=== PATIENT | male | born 1990 | race Caucasian/White ===

== ENCOUNTER 2016-08-29 21:44 | Emergency (ER) | payer OTHER ==
[2016-08-29 21:52] VITALS: BP 135/70
[2016-08-29] MEDS ORDERED: LIDOCAINE 1% INJ-PF (10 MG/ML) 30 ML SDV INJ ONE (22:26)
--- NOTE | 2016-08-29 22:31 | ER Document Report ---
ED Skin Rash/Insect Bite/Abscs - General Chief Complaint: Rectal Abscess Stated Complaint: POSSIBLE ABSCESS Time Seen by Provider: 08/29/16 22:17 Notes: Patient is a 26-year-old male who comes emergency department for chief complaint of 3 days of worsening pain in his left upper buttock area and lower back. He states that it is difficult to sit down. He has no trouble with bowel movements. He denies fever or chills. He is not a diabetic. He denies history of the same. TRAVEL OUTSIDE OF THE [place] IN LAST 30 DAYS: No - Related Data Allergies/Adverse Reactions: No Known Allergies Allergy (Unverified 01/12/16 14:02) Past Medical History - General Information source: Patient - Social History Smoking Status: Current Every Day Smoker Frequency of alcohol use: None Drug Abuse: None Lives with: Friend Family History: None Patient has suicidal ideation: No Patient has homicidal ideation: No Pulmonary Medical History: Reports: Hx Pneumonia Renal/ Medical History: Denies: Hx Peritoneal Dialysis Surgical Hx: Negative - Immunizations Hx Diphtheria, Pertussis, Tetanus Vaccination: Yes Review of Systems - Review of Systems Constitutional: No symptoms reported EENT: No symptoms reported Cardiovascular: No symptoms reported Respiratory: No symptoms reported Gastrointestinal: No symptoms reported Genitourinary: No symptoms reported Male Genitourinary: No symptoms reported Musculoskeletal: No symptoms reported Skin: See HPI Hematologic/Lymphatic: No symptoms reported Neurological/Psychological: No symptoms reported Physical Exam - Vital signs Vitals: Temp Pulse Resp BP Pulse Ox 99.1 F 93 18 135/70 H 98 08/29/16 21:49 08/29/16 21:49 08/29/16 21:49 08/29/16 21:49 08/29/16 21:49 Interpretation: Normal - General General appearance: Appears well, Alert In distress: None - Patient has difficulty sitting comfortably but otherwise he does not appear to be in distress - HEENT Head: Normocephalic, Atraumatic Eyes: Normal Conjunctiva: Normal Extraocular movements intact: Yes Eyelashes: Normal Pupils: PERRL Sinus: Normal Nasal: Normal Mouth/Lips: Normal Mucous membranes: Normal Pharynx: Normal Neck: Normal - Respiratory Respiratory status: No respiratory distress Chest status: Nontender Breath sounds: Normal. No: Decreased air movement, Wheezing Chest palpation: Normal - Cardiovascular Rhythm: Regular. No: Tachycardia Heart sounds: Normal auscultation, S1 appreciated, S2 appreciated Murmur: No - Abdominal Inspection: Normal Distension: No distension Bowel sounds: Normal Tenderness: Nontender Organomegaly: No organomegaly - Back Back: Normal, Nontender. 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 Course - Re-evaluation Re-evalutation: 08/29/16 22:31 [facility], however patient specifically tells me this is not true, this is the first time. Patient with pilonidal cyst abscess, this was cleaned, drained, packed, patient placed on antibiotics, patient given pain medication. Discussed care, follow-up , return precautions, patient also given surgical referral in case he needs it. This was discussed in detail. Patient states understanding and agreement. - Vital Signs Vital signs: Temp Pulse Resp BP Pulse Ox 99.1 F 93 18 135/70 H 98 08/29/16 21:49 08/29/16 21:49 08/29/16 21:49 08/29/16 21:49 08/29/16 21:49 Procedures - Incision and Drainage left sided pilonidal cyst abscess Type: Single Anesthetic type: 1% Lidocaine mL's of anesthetic: 8 I&D procedure: Shurclens applied - surgical cleanser, Sterile dressing applied Incision Method: Incision made by scalpel Notes: About 20 ccs of purulent material expressed; explored, cleaned, packed. Discharge - Discharge Clinical Impression: Pilonidal cyst with abscess Condition: Stable Disposition: HOME, SELF-CARE Additional Instructions: You have been evaluated and treated today for a pilonidal cyst abscess. Packing needs to come out/be exchanged in hours. Keep clean, keep absorbing dressing over the site, take the antibiotic prescribed. The pain medication if needed. I recommend followup with the surgical referral if this continues to happen. Return to emergency department immediately for any concerning or worsening symptoms including severe pain or swelling, spreading redness, fever, etc. Prescriptions: Morphine Sulfate [Morphine Ir 15 Mg Tablet] 15 mg PO Q4HP PRN #12 tablet PRN Reason: Sulfamethoxazole/Trimethoprim [Bactrim Ds Tablet] 1 each PO BID #10 tablet Forms: Return to Work Referrals: [facility] [Provider Group] - Follow up as needed
[2016-08-29] MEDS ORDERED: MORPHINE SULFATE 10 MG/ML INJ IM ONE (23:01)
[2016-08-29] MEDS ORDERED: ONDANSETRON 4 MG TAB.RAPDIS PO ONE (23:01)
== END 2016-08-30 00:40 | disposition home or self-care (01) ==
LOC: ER 21:44
PROC: 0H98XZZ Drainage of Buttock Skin, External Approach (ICD-10-PCS; principal; 2016-08-29)
DX: K61.1 Rectal abscess (principal); F17.200 Nicotine dependence, unspecified, uncomplicated
CPT/HCPCS: 99283; 96372; 10080; S0119; J2270; A6266

== ENCOUNTER 2016-08-31 18:05 | Emergency (ER) | payer OTHER ==
[2016-08-31 18:21] VITALS: BP 140/49
--- NOTE | 2016-08-31 19:24 | ER Document Report ---
HPI - HPI Patient complains to provider of: Abscess I and D wound check Onset: Other - Tuesday Onset/Duration: Better Pain Level: 3 Context: 26-year-old male had a pilonidal cyst abscess I&D done Tuesday. He is here for a wound recheck. Feels a lot better and he has been going to work. He came today to get the packing removed. No fever. Associated Symptoms: None Exacerbated by: Denies Relieved by: Denies Similar symptoms previously: No Recently seen / treated by doctor: No - ROS ROS below otherwise negative: Yes Systems Reviewed and Negative: Yes All other systems reviewed and negative - REPRODUCTIVE Reproductive: DENIES: : - DERM Skin Color: Normal Past Medical History - General Information source: Patient - Social History Smoking Status: Current Every Day Smoker Frequency of alcohol use: None Drug Abuse: None Lives with: Spouse/Significant other Family History: None Patient has suicidal ideation: No Patient has homicidal ideation: No Pulmonary Medical History: Reports: Hx Pneumonia Renal/ Medical History: Denies: Hx Peritoneal Dialysis Past Surgical History: Reports: Hx Oral Surgery - wisdom teeth - Immunizations Hx Diphtheria, Pertussis, Tetanus Vaccination: Yes Vertical Provider Document - CONSTITUTIONAL Agree With Documented VS: Yes Exam Limitations: No Limitations General Appearance: No Apparent Distress - INFECTION CONTROL TRAVEL OUTSIDE OF THE [place] IN LAST 30 DAYS: No - HEENT HEENT: Normocephalic - NECK Neck: Supple - RESPIRATORY O2 Sat by Pulse Oximetry: 97 - NEURO Level of Consciousness: Awake, Alert, Appropriate - DERM Integumentary: Abscess - Packing removed from the left pilonidal abscess incision and drainage there is minimal erythema and pus. Course - Vital Signs Vital signs: Temp Pulse Resp BP Pulse Ox 99.1 F 75 17 140/49 H 97 08/31/16 18:20 08/31/16 18:20 08/31/16 18:20 08/31/16 18:20 08/31/16 18:20 Discharge - Discharge Clinical Impression: Abscess I and D recheck Condition: Good Disposition: HOME, SELF-CARE Instructions: Abscess ([facility]) Additional Instructions: Shower daily using antibacterial soap and vigorous washing with a washcloth in the shower pressure over the wound Finish antibiotics Dry dressing return to the emergency room any concerns Please complete the patient satisfaction survey if you get one, and return it.. If you do not receive a survey, then you can go to the [facility] website, [email or web address] and place your comments about your very good care. Thank you very much. It was a pleasure being your medical provider today.
== END 2016-08-31 20:02 | disposition home or self-care (01) ==
LOC: ER 18:05
DX: Z48.01 Encounter for change or removal of surgical wound dressing (principal); F17.200 Nicotine dependence, unspecified, uncomplicated
CPT/HCPCS: 99282

== ENCOUNTER 2016-09-12 07:06 | Emergency (ER) | payer OTHER ==
[2016-09-12 07:16] VITALS: BP 140/61
[2016-09-12] MEDS ORDERED: CIPROFLOXACIN HCL/DEXAMETH OTIC DROP 7.5 ML AD ONE (07:25)
[2016-09-12] MEDS ORDERED: HYDROCODONE/ACETAMINOPHEN 5-325 MG 6 TAB/DSPK PO PRN (07:25)
--- NOTE | 2016-09-12 07:34 | ER Document Report ---
HPI - HPI Patient complains to provider of: r ear pain Onset: Other - 3 days Onset/Duration: Persistent Quality of pain: Sharp Pain Level: 4 Context: Patient presents complaining of right ear pain with swelling and drainage from his right ear. Symptoms have been going on for the past 3 days. Patient denies any fever. Associated Symptoms: Earache. denies: Fever Exacerbated by: Denies Relieved by: Denies Similar symptoms previously: No Recently seen / treated by doctor: No - ROS ROS below otherwise negative: Yes Systems Reviewed and Negative: Yes All other systems reviewed and negative - CONSTITUTIONAL Constitutional: DENIES: Fever - EENT EENT: REPORTS: Ear Pain - GASTROINTESTINAL Gastrointestinal: DENIES: Nausea, Patient vomiting - REPRODUCTIVE Reproductive: DENIES: : - MUSCULOSKELETAL Musculoskeletal: DENIES: Neck Pain - DERM Skin Color: Normal Skin Problems: None Past Medical History - General Information source: Patient - Social History Smoking Status: Current Every Day Smoker Frequency of alcohol use: None Drug Abuse: None 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 IN LAST 30 DAYS: No - HEENT HEENT: Atraumatic, Normocephalic. negative: Pharyngeal Exudate, Pharyngeal Tenderness, Pharyngeal Erythema Notes: Patient with tenderness with movement of right helix, right preauricular lymphadenopathy. Right external auditory canal swollen with exudate. Patient without any mastoid tenderness or swelling. - NECK Neck: Lymphadenopathy-Right - preauricular - RESPIRATORY Respiratory: Breath Sounds Normal, No Respiratory Distress O2 Sat by Pulse Oximetry: 95 - CARDIOVASCULAR Cardiovascular: Regular Rate, Regular Rhythm - MUSCULOSKELETAL/EXTREMETIES Musculoskeletal/Extremeties: MAEW - NEURO Level of Consciousness: Awake, Alert, Appropriate Motor/Sensory: No Motor Deficit - DERM Integumentary: Warm, Dry, No Rash Course - Re-evaluation Re-evalutation: 09/12/16 07:33 The patient has been informed that they may have pre-hypertension or hypertension based on a blood pressure reading in the emergency department. I recommend that patient call the primary care provider listed on their discharge instructions or a physician of their choice by this week to arrange follow-up for further evaluation of possible pre-hypertension or hypertension. 09/12/16 08:06 modified ear wick made from plain packing gauze placed in R EAC. Drops administered. Pt advised to remove packing if it does not fall out at the end of the 7 day. - Vital Signs Vital signs: Temp Pulse Resp BP Pulse Ox 98.8 F 94 18 140/61 H 95 09/12/16 07:12 09/12/16 07:12 09/12/16 07:12 09/12/16 07:12 09/12/16 07:12 Discharge - Discharge Clinical Impression: Elevated blood pressure reading Otitis externa Qualifiers: Otitis externa type: unspecified type Chronicity: acute Laterality: right Qualified Code(s): H60.501 - Unspecified acute noninfective otitis externa, right ear Disposition: HOME, SELF-CARE Instructions: Use of Ear Drops ([facility]), Otitis Externa ([facility]), Oral Narcotic Medication ([facility]) Additional Instructions: Return immediately for any new or worsening symptoms Followup with your primary care provider, call tomorrow to make a followup appointment Ciprodex, instill 4 drops to right ear twice a day for 7 days. Prescriptions: Hydrocodone/Acetaminophen [[place] 5-325 Tablet] 1 each PO Q4 PRN #10 tablet PRN Reason: Forms: Elevated Blood Pressure Referrals: [facility] [Provider Group] - Follow up as needed
== END 2016-09-12 08:12 | disposition home or self-care (01) ==
LOC: ER 07:06
DX: H60.501 Unspecified acute noninfective otitis externa, right ear (principal); H92.01 Otalgia, right ear; R03.0 Elevated blood-pressure reading, without diagnosis of hypertension; F17.200 Nicotine dependence, unspecified, uncomplicated
CPT/HCPCS: 99282; J3490

== ENCOUNTER 2018-04-18 17:20 | Emergency (ER) | payer OTHER ==
[2018-04-18] MEDS ORDERED: HALOPERIDOL LACTATE INJ 5 MG/1 ML VIAL IM ONE (20:05)
[2018-04-18] MEDS ORDERED: LORAZEPAM INJ 2 MG/1 ML VIAL IM ONE (20:05)
[2018-04-18] MEDS ORDERED: DIPHENHYDRAMINE HCL 50 MG/ML VIAL IM ONE (20:05)
[2018-04-18] MEDS: LORAZEPAM INJ 2 MG/1 ML VIAL ONE ×2 (20:05→20:20)
[2018-04-18] MEDS: DIPHENHYDRAMINE HCL 50 MG/ML VIAL ONE ×2 (20:05→20:20)
[2018-04-18] MEDS: HALOPERIDOL LACTATE INJ 5 MG/1 ML VIAL ONE ×2 (20:06→20:20)
[2018-04-18 20:29] LABS: ABSOLUTE BASOPHILS # (AUTO) 0.1 10^3/uL (0.0-0.2); ABSOLUTE EOSINOPHILS # (AUTO) 0.1 10^3/uL (0.0-0.6); ABSOLUTE LYMPHOCYTES (AUTO) 3.1 10^3/uL (0.5-4.7); ABSOLUTE MONOCYTES (AUTO) 0.8 10^3/uL (0.1-1.4); ABSOLUTE NEUT (AUTO) 9.9 10^3/uL (1.7-8.2); BASOPHILS % (AUTO) 0.5 % (0-2); EOSINOPHILS % (AUTO) 0.6 % (0-6); HEMATOCRIT 50.1 % (37.9-51.0); HEMOGLOBIN 17.6 g/dL (13.5-17.0); LYMPHOCYTES % (AUTO) 22.4 % (13-45); MEAN CORPUSCULAR HEMOGLOBIN 31.1 pg (27.0-33.4); MEAN CORPUSCULAR HGB CONC 35.1 g/dL (32.0-36.0); MEAN CORPUSCULAR VOLUME 88 fl (80-97); MONOCYTES % (AUTO) 5.6 % (3-13); PLATELET COUNT 318 10^3/uL (150-450); RED BLOOD COUNT 5.67 10^6/uL (4.35-5.55); RED CELL DISTRIBUTION WIDTH 13.3 % (11.5-14.0); SEGMENTED NEUTROPHILS % (AUTO) 70.9 % (42-78); TOTAL CELLS COUNTED % (AUTO) 100 %
[2018-04-18 20:49] LABS: ALANINE AMINOTRANSFERASE 36 U/L (21-72); ALBUMIN 5.5 g/dL (3.5-5.0); ALKALINE PHOSPHATASE 94 U/L (38-126); ANION GAP 17 (5-19); ASPARTATE AMINO TRANSFERASE 29 U/L (17-59); BILIRUBIN,DIRECT 0.3 mg/dL (0.0-0.4); BILIRUBIN,TOTAL 0.8 mg/dL (0.2-1.3); BLOOD UREA NITROGEN 12 mg/dL (7-20); CALCIUM 10.8 mg/dL (8.4-10.2); CARBON DIOXIDE 20 mmol/L (22-30); CHLORIDE 105 mmol/L (98-107); GLUCOSE 102 mg/dL (75-110); POTASSIUM 4.2 mmol/L (3.6-5.0); SODIUM 142.1 mmol/L (137-145); TOTAL PROTEIN 8.5 g/dL (6.3-8.2)
[2018-04-18 20:54] LABS: ACETAMINOPHEN < 10 ug/mL (10-30); ALCOHOL < 10 mg/dL (NONE DETECTED); SALICYLATE < 1.0 mg/dL (2.0-20.0)
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
[2018-04-19 06:05] LABS: ABSOLUTE BASOPHILS # (AUTO) 0.1 10^3/uL (0.0-0.2); ABSOLUTE EOSINOPHILS # (AUTO) 0.1 10^3/uL (0.0-0.6); ABSOLUTE LYMPHOCYTES (AUTO) 2.3 10^3/uL (0.5-4.7); ABSOLUTE MONOCYTES (AUTO) 0.8 10^3/uL (0.1-1.4); BASOPHILS % (AUTO) 0.6 % (0-2); EOSINOPHILS % (AUTO) 1.6 % (0-6); HEMATOCRIT 46.3 % (37.9-51.0); HEMOGLOBIN 16.1 g/dL (13.5-17.0); LYMPHOCYTES % (AUTO) 24.7 % (13-45); MEAN CORPUSCULAR HEMOGLOBIN 30.7 pg (27.0-33.4); MEAN CORPUSCULAR HGB CONC 34.9 g/dL (32.0-36.0); MEAN CORPUSCULAR VOLUME 88 fl (80-97); MONOCYTES % (AUTO) 8.4 % (3-13); PLATELET COUNT 232 10^3/uL (150-450); RED BLOOD COUNT 5.26 10^6/uL (4.35-5.55); RED CELL DISTRIBUTION WIDTH 13.1 % (11.5-14.0); SEGMENTED NEUTROPHILS % (AUTO) 64.7 % (42-78); TOTAL CELLS COUNTED % (AUTO) 100 %; WHITE BLOOD COUNT 9.3 10^3/uL (4.0-10.5)
[2018-04-19 06:06] VITALS: BP 128/68
[2018-04-19 06:21] LABS: APPEARANCE,URINE SLIGHTLY-CLOUDY; BILIRUBIN,URINE NEGATIVE (NEGATIVE); GLUCOSE, URINE NEGATIVE (NEGATIVE); KETONES,URINE TRACE mg/dL (NEGATIVE); LEUKOCYTE ESTERASE,URINE NEGATIVE (NEGATIVE); NITRITE,URINE NEGATIVE (NEGATIVE); PROTEIN,URINE 30 mg/dL (NEGATIVE); URINE SPECIFIC GRAVITY 1.026; UROBILINOGEN,URINE NEGATIVE mg/dL (<2.0)
[2018-04-19 06:23] LABS: COLOR,URINE YELLOW
[2018-04-19 06:39] LABS: URINE AMPHETAMINES SCREEN NEGATIVE; URINE BARBITURATES SCREEN NEGATIVE; URINE BENZODIAZEPINES SCREEN NEGATIVE; URINE COCAINE SCREEN NEGATIVE; URINE MARIJUANA (THC) SCREEN UNCONFIRMED POSITIVE; URINE METHADONE SCREEN NEGATIVE; URINE PHENCYCLIDINE SCREEN NEGATIVE
[2018-04-19] MEDS ORDERED: NICOTINE 21 MG/24 HR PATCH.TD24 TD ONE (10:51)
--- NOTE | 2018-04-19 10:53 | ER Document Report ---
Doctor's Note Notes: 04/19/18 10:52 Patient seen and examined. Evidently the patient had made suicidal threats last night. He states he is no longer suicidal. He is actually due to start counseling today, is looking forward to that. He does admit to feeling anxious, wants a cigarette. He does have a history of suicide attempt several years ago before he quit drinking. He no longer drinks at all. He feels comfortable, and in fact is very much looking forward to discharge. Patient is mildly anxious in appearance but pleasant, cooperative, makes good eye contact. Heart is regular rate and rhythm, lungs are clear to auscultation bilaterally. Abdomen soft, nontender, normoactive bowel sounds. Plan is for discharge. Patient given a nicotine patch prior to discharge. No medication recommendations as he is currently starting counseling. Patient is amenable to this plan.
--- NOTE | 2018-04-19 19:16 | EKG REPORT ---
SEVERITY:- NORMAL ECG - SINUS RHYTHM : Confirmed by: Myra Nair MD 19-Apr-2018 19:14:43
--- NOTE | 2018-04-20 11:27 | PSYCHOLOGICAL NOTE ---
Psych Note - Psych Note Date seen by psych provider: 04/19/18 Time seen by psych provider: 09:50 Psych Note: Reason for Consult: suicidal ideation Patient is a 28-year-old male with ADHD, manic depression presents to the emergency department accompanied by IFS worker due to suicidal ideation. Clinician conducted phone consult on 04/18/2018 upon initial arrival Patient reports that he was feeling anxious. He states he has had 2 good interviews; however, did not want to be alone. He was unable to explain incongruent emotions of positive feelings between having a good interview to feelings of wanting to harm himself. He continued to report that he is not on medication. 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 He currently is in between jobs and that has created a lot of stress. Patient reports he just wants to go home that he feels the hospital will make him worse. Clinician spoke with mobile muffle worker, Niurka, who reports that they have been working with the patient since early afternoon. Patient reportedly had a couple good interviews and one came home got into an argument with his ex-girlfriend. They currently still live together however when she was told he possibly be getting a job she mentioned that she will be moving out. This resulted in the patient reporting he wanted to kill himself. She reports they put into place a line of action where the patient would not be home alone; however, for some unknown reason the people that were part of the plan left resulted in the patient being home alone again with his ex-girlfriend. At that point the patient was screaming at at his ex-girlfriend and continued to voice suicidal ideation. She reports the patient is diagnosed with bipolar however is not taking medication. She confirms there was weapons in the home however personally witnessed the weapons being removed. She reports the patient witnessed his father being killed when he was young. He has been sober for 5 years. She reports a concern is that they had a plan of care that for unknown reasons dissolved. Patient is unable to stay with his girlfriend because of the discord. Patient was recommended for IVC petition for overnight mental health hold and observation. Patient will be reevaluated in the morning and person. Evaluation in person 04/19/2018 Patient reports he is feeling "better just still a little anxious." He reports that he feels that stemming from being in the hospital itself not from last night's events. Patient apologized for his behavior last evening. Clinician notes patient's behavior escalated after phone consult and being told he had to stay overnight. Patient identifies Victor Hugo Aguirre as a roommate and provided consent for clinician to speak with him. He reports that he has other friends that are willing to assist in monitoring the patient. He disclosed that he does have an interview today at 4 PM and is very concerned about missing this. He continued to report that he has an appointment with [facility]. He states that while he does not want to take medication if this is recommended by the behavioral health team he will take the medications. Clinician spoke with patient's roommate, Victor Hugo. He reports that he was not part of the plan of care last night with the patient. He states that their friend was with him however had to leave for work and they were hoping that the patient be able to stay with his ex-girlfriend until at he himself got off of work; however, it dissolved before he even got off work. He discloses that he is home for the patient today and confirms he will continue working with the patient to ensure he does not have access to medications and will follow with mental health recommendations. He has no concerns with the patient returning home and states that he knows that the patient is very concerned about missing a job interview has this is been a significant stressor. He reports that the patient's ex- girlfriend has moved out of their apartment so there will be no contact between the 2. Clinician spoke with patient to discuss the fact that the girlfriend moved out of the apartment. He reports that he asked her to and is glad that she is followed through with that. He discloses appropriate affect and acknowledging needing to learn positive coping skills. No medication recommendations at this time Unspecified bipolar and related disorder Alcohol abuse per history; 5 years sober Impression\\plan: Patient is recommended for rescind of IVC and is cleared from acute psychiatric services. Patient presentation has greatly improved. He has had time to cool down is able to engage appropriate with clinician. Patient is able to engage in problem solving and solution focused techniques with clinician to identify working with outpatient mental health services in the form of therapy. Patient agrees to engage in services and allow time to work with a therapist to determine if medication is needed. Patient's roommate, Victor Hugo, agrees to be part of patient's plan of care i.e. no access to medications and weapons and follows through with mental health recommendations. All weapons have been removed from the home and the significant stressor of the ex- girlfriend living in the home has moved out during his [facility] visit. Patient has an appointment with [facility] for continued outpatient mental health treatment. Dr. Elliott was consulted and the care management this patient; attending physicians in agreement with recommendations and disposition.
== END 2018-04-19 11:23 | disposition home or self-care (01) ==
LOC: ER 17:20
DX: R45.851 Suicidal ideations (principal); F17.210 Nicotine dependence, cigarettes, uncomplicated; Z88.0 Allergy status to penicillin
CPT/HCPCS: 93005; 99285; 96372; 36415; 80307 ×4; 85025; 80053; 81001; 93010; J1200; J1630; J2060

== ENCOUNTER 2018-05-06 16:08 | Emergency (ER) | payer SELFPAY ==
--- NOTE | 2018-05-06 17:08 | ER Document Report ---
ED Medical Screen (RME) - General Chief Complaint: Cyst Stated Complaint: POSSIBLE ABSCESS Time Seen by Provider: 05/06/18 17:06 Mode of Arrival: Ambulatory Information source: Patient TRAVEL OUTSIDE OF THE [place] IN LAST 30 DAYS: No - HPI Patient complains to provider of: pilonidal cyst Onset: Yesterday - pt with h/o recurrent pilonidal cyst with painful swollen cyst in usual location. - Related Data Allergies/Adverse Reactions: amoxicillin Allergy (Verified 04/18/18 17:54) Past Medical History Pulmonary Medical History: Reports: Hx Pneumonia Renal/ Medical History: Denies: Hx Peritoneal Dialysis Psychiatric Medical History: Reports: Hx Attention Deficit Hyperactivity Disorder, Hx Depression Past Surgical History: Reports: Hx Oral Surgery - wisdom teeth, Hx Tonsillectomy - adenoids - Immunizations Hx Diphtheria, Pertussis, Tetanus Vaccination: Yes Physical Exam - Vital signs Vitals: Temp Pulse Resp BP Pulse Ox 98.4 F 94 16 110/58 L 98 05/06/18 16:24 05/06/18 16:24 05/06/18 16:24 05/06/18 16:24 05/06/18 16:24 Course - Vital Signs Vital signs: Temp Pulse Resp BP Pulse Ox 98.4 F 94 16 110/58 L 98 05/06/18 16:24 05/06/18 16:24 05/06/18 16:24 05/06/18 16:24 05/06/18 16:24
[2018-05-06] MEDS ORDERED: LIDOCAINE 1%/EPINEPHRINE INJ 20 ML VIAL INJ ONE (20:06)
[2018-05-06] MEDS ORDERED: SULFAMETHOXAZOLE/TRIMETHOPRIM 800-160 MG TABLET PO ONE (20:34)
--- NOTE | 2018-05-06 20:38 | ER Document Report ---
ED General - General Chief Complaint: Cyst Stated Complaint: POSSIBLE ABSCESS Time Seen by Provider: 05/06/18 17:06 Mode of Arrival: Ambulatory Notes: Patient is a 27-year-old male with a past oral history of a recurrent pilonidal cyst and requiring repeated drainages for the abscess to the same area who presents with 4 days of progressively worsening pain and swelling to the left gluteal cleft. I saw this patient in November 2017 for the same and he states that it feels identical to that. He does describe having a severe, constant, aching pain to the area. States any application of pressure such as trying to sit down triggers or worsens the pain. He has been trying Tylenol and ibuprofen without any significant improvement in the pain. He denies any fever or constitutional symptoms. He is planning to go to [place] and has an appointment scheduled for surgery for definitive management at that time as he did not follow-up after our last visit. TRAVEL OUTSIDE OF THE [place] IN LAST 30 DAYS: No - Related Data Allergies/Adverse Reactions: amoxicillin Allergy (Verified 04/18/18 17:54) Past Medical History - General Information source: Patient - Social History Smoking Status: Current Every Day Smoker Chew tobacco use (# tins/day): No Frequency of alcohol use: None Drug Abuse: Marijuana Lives with: Spouse/Significant other Family History: Reviewed & Not Pertinent Patient has suicidal ideation: No Patient has homicidal ideation: No Pulmonary Medical History: Reports: Hx Pneumonia Renal/ Medical History: Denies: Hx Peritoneal Dialysis Psychiatric Medical History: Reports: Hx Attention Deficit Hyperactivity Disorder, Hx Depression Past Surgical History: Reports: Hx Oral Surgery - wisdom teeth, Hx Tonsillectomy - adenoids - Immunizations Hx Diphtheria, Pertussis, Tetanus Vaccination: Yes Review of Systems - Review of Systems Notes: Constitutional: Negative for fever. HENT: Negative for sore throat. Eyes: Negative for visual changes. Cardiovascular: Negative for chest pain. Respiratory: Negative for shortness of breath. Gastrointestinal: Negative for abdominal pain, vomiting or diarrhea. Genitourinary: Negative for dysuria. Musculoskeletal: Negative for back pain. Skin: Positive for buttock abscess Neurological: Negative for headaches, weakness or numbness. 10 point ROS negative except as marked above and in HPI. Physical Exam - Vital signs Vitals: Temp Pulse Resp BP Pulse Ox 98.4 F 94 16 110/58 L 98 05/06/18 16:24 05/06/18 16:24 05/06/18 16:24 05/06/18 16:24 05/06/18 16:24 Interpretation: Normal Notes: PHYSICAL EXAMINATION: GENERAL: Well-appearing, well-nourished and in no acute distress. HEAD: Atraumatic, normocephalic. EYES: sclera anicteric, conjunctiva are normal. ENT: Moist mucous membranes. NECK: Normal range of motion LUNGS: Normal work of breathing HEART: 2+ radial pulses bilaterally EXTREMITIES: no pitting or edema. No cyanosis. NEUROLOGICAL: No focal neurological deficits. Moves all extremities spontaneously and on command. PSYCH: Normal mood, normal affect. SKIN: Warm, Dry, normal turgor, 2 x 2 cm pilonidal abscess to the left gluteal cleft with a 3 x 3 cm area of surrounding cellulitis Course - Re-evaluation Re-evalutation: 05/06/18 20:36 Patient presents with a pilonidal abscess of the left gluteal cleft. Area was anesthetized, incised and drained without any difficulty. Patient tolerated procedure well. Packing was placed. Patient has been started on trimethoprim sulfamethoxazole, first dose given here in the emergency department. Vitals within normal limits. No indication for labs or imaging. Patient has scheduled surgical follow-up in [place] where he is moving tomorrow. At this time will discharge with return precautions and follow-up recommendations. Verbal discharge instructions given a the bedside and opportunity for questions given. Medication warnings reviewed. Patient is in agreement with this plan and has verbalized understanding of return precautions and the need for primary care follow-up in the next 24-72 hours. - Vital Signs Vital signs: Temp Pulse Resp BP Pulse Ox 98.4 F 94 16 110/58 L 98 05/06/18 16:24 05/06/18 16:24 05/06/18 16:24 05/06/18 16:24 05/06/18 16:24 Discharge - Discharge Clinical Impression: Pilonidal abscess, Cellulitis of buttock, left Condition: Good Disposition: HOME, SELF-CARE Additional Instructions: You were seen for an abscess that required drainage. Please clean this area with soap and water twice daily and apply a topical antibiotic. Dress the area after each cleaning. Please return if you develop fever, vomiting, the pain at the site worsens, you notice spreading redness from the area, or you have any other symptoms that are concerning to you. If the packing has not fallen out within 2 days please remove it. Please take all antibiotics until they are completed. Prescriptions: Sulfamethoxazole/Trimethoprim [Bactrim Ds Tablet] 2 tab PO BID #28 tablet
[2018-05-06 21:11] VITALS: BP 110/60
== END 2018-05-06 21:12 | disposition home or self-care (01) ==
LOC: ER 16:08
DX: L05.91 Pilonidal cyst without abscess (principal); L03.317 Cellulitis of buttock; F17.200 Nicotine dependence, unspecified, uncomplicated
CPT/HCPCS: 99282; A6266; J3490